=== PATIENT | female | born 1945 | race Caucasian/White ===

== ENCOUNTER 2020-03-23 11:51 | Day surgery (SDC) | payer MEDICARE, OTHER, SELFPAY ==
[2017-01-13 14:36] VITALS: BMI 39.4
--- NOTE | 2020-03-10 12:55 | HP.PCM_ITS ---
History and Physical Date of Admission: 03/23/20 HPI: The patient is a 74 year old female presenting for pre-operative visit. She is scheduled for?Hysteroscopy D&C?with possible polyp resectoin, for?endometrial polyp on?03/23/2020. ??Procedure discussed along with risks, benefits and complications. ?Other alternatives discussed for management. Consent form signed??Yes.? PAST MEDICAL HISTORY PAST MEDICAL HISTORY Diagnosis Date ? Breast cancer in female (HCC) 10/2016 ? External hemorrhoids without mention of complication ? ? Glaucoma ? ? Hypertension ? ? Internal hemorrhoids without mention of complication ? ? Mononucleosis 1983 ? Other and unspecified hyperlipidemia ? ? Pneumonia 2003 ? Snoring ? ? ? PAST SURGICAL HISTORY PAST SURGICAL HISTORY Procedure Laterality Date ? CARPAL TUNNEL RIGHT WRIST ? 1979,1995 ? twice ? COLONOSCOP W/ OR W/O BRSH SPEC ? 01/27/07 ? normal ? COLONOSCOP W/ OR W/O BRSH SPEC ? 02/13/2018 ? Colonoscopy ? JOINT REPLACEMENT HX ? 2007 ? left finger ? LEFT WRIST CARPAL TUNNEL ONLY ? 2009 ? LIGATE FALLOPIAN TUBE ? ? ? Tubal ligation ? MASTECTOMY, PARTIAL Right 01/13/2017 ? right breast [facility] ?- invasive mucinous breast cancer, 2.5 cm, invading chest wall musculature, 2 of 2 sentinel lymph nodes negative ? REMOVAL OF TONSILS,<12 Y/O ? ? ? Tonsillectomy ? ? CURRENT MEDICATIONS Current Outpatient Medications Medication Sig Dispense Refill ? lisinopril 2.5 mg tablet Take 1 tablet by mouth once daily. 90 tablet 3 ? magnesium oxide (MAG-OX) 400 mg (241.3 mg magnesium) tablet Take 400 mg by mouth once daily. ? ? ? anastrozole (ARIMIDEX) 1 mg tablet Take 1 tablet by mouth once daily. 90 tablet 3 ? CALCIUM CITRATE (CITRACAL ORAL) Take 2 tablets by mouth once daily. ? VIT B COMPLEX 100 NO.2/HERBS (VITAMIN B COMPLEX 100 ?2-HERBS ORAL) Take 1 tablet by mouth once daily. ? ? ? MULTIVIT/IRON/FA/K/HERB NO.244 (ALIVE WOMEN'S ENERGY ORAL) Take 1 tablet by mouth once daily. ? ? ? LACTOBACILLUS ACIDOPHILUS (PROBIOTIC ACIDOPHILUS ORAL) Take 1 tablet by mouth once daily. ? ? ? latanoprost (XALATAN) 0.005 % ophthalmic solution Use 1 Drop in both eyes daily at bedtime. TO AFFECTED EYE(S) ? 0 ? Cholecalciferol, Vitamin D3, (VITAMIN D-3) 2,000 unit cap Take 1 capsule by mouth once daily. ? miSOPROStol (CYTOTEC) 200 mcg tablet Use 2 tablets vaginally as directed for [address] 2 tablets vaginally qhs before the procedure and 2 the morning of 4 tablet 0 ? No current facility-administered medications for this visit.? ? ALLERGIES:?Naprosyn [Naproxen] ? PERSONAL HISTORY:? SOCIAL HISTORY Social History ? Tobacco Use ? Smoking status: Never Smoker ? Smokeless tobacco: Never Used Substance Use Topics ? Alcohol use: Yes ? ? Frequency: Monthly or less ? ? Drinks per session: 1 or 2 ? ? Binge frequency: Never ? ? Comment: occasionally ? Drug use: No ? FAMILY HISTORY:? FAMILY HISTORY FAMILY HISTORY Problem Relation Age of Onset ? Heart Failure Father ? ? Breast Cancer Daughter ?2002, returned in 2012 ? other (Other) Sister ?colostomy for adenomatous disease, no cancer. ? Stroke Maternal Grandmother ? ? Multiple Sclerosis Sister ? ? Breast Cancer Daughter ?2014-double mastectomy, stage IV ? REVIEW OF SYMPTOMS: GENERAL: denies fevers or chills ENDOCRINOLOGY: has not been on steroids Cardiology : denies palpitations or chest pain Respiratory: denies SOB or cough Hematology: denies history of prolonged bleeding or easy bruising or VTE Allergy: Denies history of personal or family history of allergy to anesthesia ? ? PHYSICAL EXAMINATION: ? VITALS:?Blood pressure 126/82, weight 212 lb (96.2 kg). ? GENERAL:??The patient is well nourished, well hydrated in no acute distress. ?, The patient is oriented to time, place, and person. NECK:?Supple. No lynphadenopathy, normal thyroid, no thyromegaly. LUNGS:?Clear to auscultation bilaterally. no wheezes, rhonchi or rales HEART:?Regular rate and rhythm, Normal heart sounds and No murmurs or gallops GENITALIA:?deferred ? ? IMPRESSION:?endometrial polyp (no bleeding) ? PLAN:???The risks/benefits/alternatives and personal involved for the planned?hysteroscopy D&C with possible polyp resection?were reviewed with the patient. Her questions were answered to her satisfaction and she desires to proceed. ?Consent was signed. ?I reviewed with her postop instructions and expectations. ? ? I have reviewed and updated past medical and surgical history, medications and allergies? ? The patient was offered?a?surgery/procedure at [facility]. The surgeon/proceduralist and patient have discussed in detail the risk of exposure to and/or potential harm posed by the COVID-19 virus with having a surgery/procedure at this time versus the risk of??delaying the surgery/procedure. It is not possible to know either the risk of delaying the surgery or procedure or chance of getting an infection with perfect accuracy, but a joint decision was made between the patient and the surgeon/proceduralist ?to proceed at this time with the scheduled surgery/procedure as indicated on the consent form. This H&P was completed in my office on 03/07/2020 Procedure Criteria Procedure Type: Elective COVID Risk Discussion: The surgeon/proceduralist and patient have discussed in detail the risk of exposure to and/or potential harm posed by the COVID-19 virus with having a surgery/procedure at this time versus the risk of delaying the surgery/procedure. It is not possible to know either the risk of delaying the surgery or procedure or chance of getting an infection with perfect accuracy, but a joint decision was made between the patient and the surgeon/proceduralist to proceed at this time with the scheduled surgery/procedure as indicated on the consent form.
[2020-03-23 12:17] LABS: Hematocrit 45.3 % (37-47); Hemoglobin 14.6 g/dL (12.0-15.0); Mean Corp Hgb Conc 32.2 g/dL (32-36); Mean Corpuscular Hgb 29.6 pg (27.0-32.0); Mean Corpuscular Volume 91.9 fL (81-99); Mean Platelet Vol. 8.6 fl (6.2-12.0); Platelet Count 184 K/mm3 (150-450); RBC Distribution Width CV 14.2 % (11.6-14.6); Red Blood Count 4.93 M/mm3 (4.2-5.4); White Blood Count 16.7 K/mm3 (4.4-11.0)
[2020-03-23 12:46] VITALS: BP 133/62; PULSE 93; RESP 18; TEMP 37.3; O2SAT 95; BMI 36.8
[2020-03-23] MEDS: Acetaminophen 500 MG Tablet 1000 MG PO (12:58)
[2020-03-23] MEDS: Lactated Ringers 1,000 ML 40 ML IV (13:07)
--- NOTE | 2020-03-23 13:23 | DCINST_ITS ---
Discharge Diet: No Restrictions Discharge Activity: Return to Normal Activity, May Shower, May Take a Tub Bath - in 2 weeks. May resume sexual activity in: 2 weeks Call your doctor if your incision/area has: Sudden Increased Bleeding, Increased Pain/ Swelling, Foul Smelling Discharge Call your doctor if you observe: Fever of 101 or Higher, Using more than one pad per hour - for 2 hrs in a row Allergies/Adverse Reactions: Allergies naproxen [From Naprosyn] Allergy (Verified 03/23/20 12:40) Other GETS A WARM FUZZY FEELING Medications to take at Discharge L.acidoph,Paracasei, B.lactis [Probiotic] 1 each PO DAILY 01/09/17 Latanoprost 0.005% [Xalatan Opthalmic] 1 drop EACH EYE QHS 01/09/17 Lisinopril [Zestril] 2.5 mg PO DAILY 01/09/17 Multivitamin [Daily Multiple Vitamin] 1 each PO DAILY 01/09/17 Anastrozole [Arimidex] 1 mg PO DAILY 03/17/20 Calcium/D3/Zinc/Copper/Edis [Citracal-D3 Maximum Plus Caplt] 2 ea PO DAILY 03/17/20 Cholecalciferol (Vitamin D3) [Vitamin D3] 2,000 unit PO DAILY 03/17/20 Magnesium Oxide [Magnesium] 400 mg PO DAILY 03/17/20 Vitamin B Complex 1 ea PO DAILY 03/17/20 Primary Care Physician: Brinda Up PA [Primary Care Provider] - Test Results: Test results from this visit will be discussed in further detail at your follow- up appointment, if applicable. Please Follow Up With: Chantal Arenas MD - [phone] When: as needed, we will call you with pathology next week
--- NOTE | 2020-03-23 13:30 | EMB_PTH ---
PATIENT: RADHA ARDON LOC: [facility] – [place] U#:[id number] AGE/SX: 74/F ROOM: RE03/23/[address]: Dr. Chantal Arenas MD : [id number] BED: DIS: 03/23/2020 SPEC #: [id number] RECD: 03/23/20 14:51 STATUS: CANDACE REEdson #: [id number] DAVID: 03/23/20 13:[address]: Chantal Arenas DEPT: SURGICAL PATHOLOGY RECD BY: Yuly Potts ENTERED: 03/24/20 07:35 SP TYPE: ENDOM BX/C SOPHIA DR: PEPITO Saucedo Tissues: Endometrium, NOS Procedures: Surgery Specimen Level IV HEADER OPERATION: Hysteroscopy, D & C Symphion, polyp resection PRE-OP DIAGNOSIS: Endometrial polyps TISSUE SUBMITTED: Endometrial curettings MICROSCOPIC DIAGNOSIS Endometrium, curettings: Inactive endometrium with extensive cystic change. See comment. AM:ciro 03/27/20 COMMENT The findings may represent a polyp. Clinical correlation is suggested. MICROSCOPIC DESCRIPTION Slides are reviewed. GROSS DESCRIPTION Received in fixative is one container labeled with the patient's name and designated endometrial curettings. The specimen consists of multiple irregular fragments of philip soft tissue that in aggregate measure 2.5 x 2.5 x 0.3 cm. The specimen is totally submitted in one cassette. / SJ:ciro 03/24/20 TC:5 CPT: 35729
[2020-03-23] MEDS: Lidocaine 1% /Epi 1:100 (20ml) 20 ML Vial (13:35)
--- NOTE | 2020-03-23 13:48 | PCM.OPRPT ---
Report of Operation Date of Procedure: 03/23/20 Pre-Operative Diagnosis: endometrial polyp Post-Operative Diagnosis: same Surgery/Procedure Performed:: hysteroscopy D&C w/ polyp resection Description of Surgical Findings:: endometrial polyp anterior fundus, otherwise atrophic endometrium, normal cervix and vagina motion picture commentator: None Type of Anesthesia:: MAC/Supplemental/Local Anesthesiologist: Sid Washington Special Medications: none Specimen's removed: endometrial curettings Drains: none Estimated Blood Loss (mL): 10 Fluids Replaced: 500 ml Description of Procedure: The patient was taken to the OR where she was prepped and draped in dorsal lithotomy position. The weighted speculum was placed in the vagina and the anterior lip of the cervix was grasped with a single-tooth tenaculum. A paracervical block was administered with [1% lidocaine with 1-100,000 epinephrine solution]. The cervix was dilated serially with Hegar dilators. The Symphion hysteroscope was placed into the uterine cavity and the above findings were noted. Bilateral tubal ostia [were] identified. The Symphion device was readied and inserted. The anterior polyp was resected and then visual dilation and curettage was performed with this device. The instruments were removed from the vagina. The specimen was handed off and sent to pathology. All sponge and needle counts were correct. Vaginal sweep was performed by me. The patient was awakened and taken to the recovery room in stable condition. Hysteroscopic fluid deficit of normal saline was calculated to be 50 cc normal saline Start time: 1335 Stop time : 1347 Grafts/Implants Used: none - Complications none - Admit VTE Documentation VTE Present on Admission: No VTE Mechan Device Prophylaxis: SCD's VTE Pharm Prophylaxis ordered?: No Reason prophylaxis not ordered:: Procedure Not Indicated
[2020-03-23 13:57] VITALS: BP 106/74; BP 133/62; PULSE 80; RESP 16; TEMP 36.3; O2SAT 100
[2020-03-23 14:07] VITALS: BP 133/62; BP 92/75; PULSE 80; RESP 16; O2SAT 100
[2020-03-23 14:10] VITALS: BP 121/69; BP 133/62; PULSE 73; RESP 16; O2SAT 97
[2020-03-23 14:14] VITALS: BP 127/59; BP 133/62; PULSE 70; RESP 16; TEMP 36.7; O2SAT 96
[2020-03-23 15:26] VITALS: BP 103/67; BP 133/62; PULSE 71; RESP 16; TEMP 37.2; O2SAT 95
== END 2020-03-23 15:28 | disposition home or self-care (01) ==
LOC: SDC 11:52 → AC 11:53
PROVIDERS: PCP Physician Assistant; Referring Provider Obstetrics & Gynecology; Visit Provider Obstetrics & Gynecology
PROC: 0UB98ZZ Excision of Uterus, Via Natural or Artificial Opening Endoscopic (ICD-10-PCS; CPT 58558; principal; 2020-03-23 13:15)
DX: N84.0 Polyp of corpus uteri (principal); Z20.828 Contact with and (suspected) exposure to other viral communicable diseases; I10 Essential (primary) hypertension; H40.9 Unspecified glaucoma; E78.5 Hyperlipidemia, unspecified; Z85.3 Personal history of malignant neoplasm of breast; Z86.2 Personal history of diseases of the blood and blood-forming organs and certain disorders involving the immune mechanism; Z78.0 Asymptomatic menopausal state; Z87.01 Personal history of pneumonia (recurrent); Z79.899 Other long term (current) drug therapy
CPT/HCPCS: 00952; 58558; 85027; 87426; 88305; C9803; J7120; J2405

== ENCOUNTER → 2020-09-29 14:14 | Outpatient (CLI) | payer MEDICARE, OTHER, SELFPAY ==
--- NOTE | 2020-09-29 14:18 | VDLE_ITS ---
Reason For Study: Pain RIGHT LEFT CFV is compressible, spontaneous, phasic, GSV is normal. competent and demonstrates normal CFV is compressible, spontaneous, phasic, augmentation. competent, and demonstrates normal Procedure augmentation. This is a venous duplex using B-mode, color FV is compressible, spontaneous, phasic, flow and spectral Doppler. competent and demonstrates normal Exam performed in department. augmentation. A preliminary report was called and/or faxed POP V is compressible, spontaneous, phasic, to Dr. Rosas. competent and demonstrates normal augmentation. T/P Trunk is compressible. PTV is compressible. LT PerV is compressible. VL/Venous Duplex US, Unilateral Interpretation Summary Deep veins of the left lower extremity are patent and compressible segmentally. There is no evidence of left lower extremity deep vein thrombosis. Valvular competence appears intac t within the proximal deep venous system on the left . The left great saphenous vein appears patent a nd compressible segmentally. Ordering Physician: Kem Rosas Referring Physician: Gerry Up Performed By: Destiny Juarez, ERICA, RVT
== END ==
PROVIDERS: PCP Physician Assistant; Referring Provider Internal Medicine Hematology & Oncology; Visit Provider Internal Medicine Hematology & Oncology
DX: M79.605 Pain in left leg (principal); C50.511 Malignant neoplasm of lower-outer quadrant of right female breast; Z17.0 Estrogen receptor positive status [ER+]; M79.89 Other specified soft tissue disorders
CPT/HCPCS: 93971